=== PATIENT | female | born 1970 | race Caucasian/White ===

== ENCOUNTER 2020-07-18 16:17 | Emergency (ER) | payer OTHER ==
[~2020-07-18 16:17] MED LIST: CIPRO500 MG PO; ELAVIL25 MG PO; INDERAL20 MG PO; LITHIUM300 MG PO; NALTREXONE 50MG50 MG PO; RISPERDAL 1MG TA1 MG PO
[2020-07-18] MEDS ORDERED: NAPROXEN500 MG PO (18:01)
== END 2020-07-18 20:07 | disposition home or self-care (01) ==
LOC: FER 16:17
DX: S90.112A Contusion of left great toe without damage to nail, initial encounter (principal); M25.562 Pain in left knee; M25.561 Pain in right knee; M25.512 Pain in left shoulder; R51.9 Headache, unspecified; W10.9XXA Fall (on) (from) unspecified stairs and steps, initial encounter; Y92.009 Unspecified place in unspecified non-institutional (private) residence as the place of occurrence of the external cause
CPT/HCPCS: 73564; 73630

== ENCOUNTER 2021-03-14 22:32 | Emergency (ER) | payer OTHER ==
[~2021-03-14 22:32] MED LIST changes: +NAPROXEN500 MG PO
[2021-03-15 00:06] LABS: BASOPHIL 0.3 % (0-2); EOSINOPHIL 0.9 % (0-5); HCT 38.3 % (37.0-47.0); HGB 13.8 g/dl (12.5-16.0); LYMPHOCYTE 19.4 % (15-48); MCV 88.9 fL (78.0-100.0); MPV 9.7 fL (6.0-9.5); NRBC 0; PLT 328 K/uL (150-400); RBC 4.31 M/uL (4.20-5.40); RDW 11.9 % (11.5-14.0); WBC 7.8 K/uL (4.0-10.5)
[2021-03-15 00:11] LABS: BILIRUBIN NEGATIVE (NEGATIVE); BLOOD TRACE-INTACT Ery/uL (NEGATIVE); COLOR YELLOW (YELLOW); GLUCOSE (U) NORMAL (NORMAL); LEUKOCYTES 1+ Leu/uL (NEGATIVE); NITRITE POSITIVE (NEGATIVE); PROTEIN NEGATIVE (NEGATIVE)
[2021-03-15 00:15] LABS: CLARITY CLOUDY (CLEAR)
[2021-03-15 00:16] LABS: AMPHETAMINES POSITIVE (NEGATIVE); BARBITURATES NEGATIVE (NEGATIVE); ECSTASY (MDMA) POSITIVE (NEGATIVE); MARIJUANA (THC) NEGATIVE (NEGATIVE); METHADONE NEGATIVE (NEGATIVE); OPIATES NEGATIVE (NEGATIVE); OXYCODONE NEGATIVE (NEGATIVE)
[2021-03-15 00:30] LABS: ALBUMIN 3.4 g/dL (3.4-5.0); ALKALINE PHOSHATASE 84 U/L (46-116); ALT 24 U/L (14-59); AST 18 U/L (15-37); BILIRUBIN - TOTAL 0.6 mg/dL (0.2-1.0); BUN 10 mg/dL (7-18); BUN/CREAT RATIO (CALC) 15.4 RATIO; CHLORIDE 107 mmol/L (98-107); CO2 (BICARBONATE) 22 mmol/L (21-32); CREATININE 0.65 mg/dL (0.51-0.95); GLOBULIN (CALCULATION) 3.7 g/dL; GLUCOSE 101 mg/dL (74-106); TOTAL PROTEIN 7.1 g/dL (6.4-8.2)
[2021-03-15 00:31] LABS: ACETAMINOPHEN (TYLENOL) < 2.0 ug/mL (10.0-30.0)
[2021-03-15 00:42] LABS: BACTERIA 4+
[2021-03-15] MEDS ORDERED: MACROBID100 MG PO (01:19)
== END 2021-03-15 11:33 | disposition home or self-care (01) ==
LOC: FER 22:32
PROVIDERS: Emergency Medicine
DX: N39.0 Urinary tract infection, site not specified (principal); F15.90 Other stimulant use, unspecified, uncomplicated; F20.9 Schizophrenia, unspecified; F17.200 Nicotine dependence, unspecified, uncomplicated
CPT/HCPCS: 36415; 71045; 80053; 80305; 81001; 85025; 87076; 87088; 87186; G0480; J2543